=== PATIENT | female | born 1960 | race Caucasian/White ===

== ENCOUNTER 2017-01-10 14:45 | Emergency (ER) | payer MEDICAID ==
[2017-01-10 15:10] VITALS: TEMP 98.2
--- NOTE | 2017-01-10 15:30 | EDPHY ---
H & P Time Seen by Provider: 01/10/17 15:26 HPI/ROS: Chief complaint.Painful breathing HPI. 56-year-old female with history of ankylosing spondylitis. She has had chest pain fairly constantly but somewhat off and on for the past 4 months. She had an echo this morning results unknown. She has had chest pain both in the left anterior chest and left posterior back as well as right posterior back. She describes as "on fire and inflamed". Not worse today but continues. Pain comes in waves in causes shortness of breath of symptoms worse with movement but not exertion breathing ; no fever, cough. no unusual leg pain or swelling. She is thirsty. ROS Constitutional. no fever/chills, no weakness Eyes. no problems with vision ENT. no sore throat, no nasal drainage Cardiovascular. Chest pain Respiratory. occasional shortness of breath Abdominal. no abdominal pain, no nausea/vomiting, no diarrhea . no problems urinating MS. no calf pain/swelling, no neck/back pain, no joint pain Skin. no rash Lymph. no swollen glands Neuro. no headache, no dizziness, no difficulty walking or with speech Past Medical/Surgical History: Past medical history significant for ankylosing spondylitis Social History: Single, nonsmoker, no alcohol Smoking Status: Never smoked Physical Exam: General Appearance: Alert well-developed female no distress vital signs are stable Eyes: Pupils equal and round no pallor or injection. ENT, Mouth: Mucous membranes are moist. Respiratory: There are no retractions, lungs are clear to auscultation. Cardiovascular: Regular rate and rhythm. Gastrointestinal: Abdomen is soft and nontender, no masses, bowel sounds normal. Neurological: Awake and alert, sensory and motor exams grossly normal. Skin: Warm and dry, no rashes. Musculoskeletal: Neck is supple nontender. Extremities symmetrical, full range of motion. Psychiatric: Patient is oriented X 3, there is no agitation. Constitutional: Initial Vital Signs Temperature (C) 36.8 C 01/10/17 15:07 Heart Rate 84 01/10/17 15:07 Respiratory Rate 18 01/10/17 15:07 Blood Pressure 123/76 H 01/10/17 15:07 O2 Sat (%) 98 01/10/17 15:07 O2 Delivery Mode Room Air Allergies/Adverse Reactions: codeine [Codeine] Allergy (Severe, Verified 10/29/12 14:36) FEELS FUNNY Home Medications: Medication Instructions Recorded Imitrex Unk Dose 08/28/12 Hydrocodone/APAP 5/325 [[place] 1 each PO Q4-6PRN PRN #14 tab 01/10/17 5/325 (*)] Naproxen 01/10/17 Medical Decision Making - Diagnostics EKG Interpretation: EKG interpreted by me shows normal sinus rhythm with normal interval and axis. QRS is normal there is no significant ST elevation or depression. No arrhythmia. The rate is 65 Imaging: Chest x-ray interpreted by me is normal Procedures: IV normal saline, monitor ED Course/Re-evaluation: Re-evaluation 6:00 p.m. and patient is stable. Patient and I discussed imaging EKG lab studies. We discussed treatment plan including criteria for return and importance of follow-up and further evaluation especially with her access clinician. She expresses understanding and agreement Differential Diagnosis: Pain exacerbation of unclear etiology. The patient has ankylosing spondylitis. She has had chest pain and back pain for quite some time. Workup today he is normal. I do not think that the patient has acute coronary syndrome, pulmonary embolus, pneumonia. Plan will be short-term narcotics and continuing the Naprosyn with close follow-up - Data Points Laboratory Results: Laboratory Results 01/10/17 16:35 01/10/17 16:35 01/10/17 01/10/17 01/10/17 16:35 16:35 16:35 WBC 5.43 10^3/uL 10^3/uL (3.80-9.50) RBC 4.20 10^6/uL 10^6/uL (4.18-5.33) Hgb 12.8 g/dL g/dL (12.6-16.3) Hct 38.7 % % (38.0-47.0) MCV 92.1 fL fL (81.5-99.8) MCH 30.5 pg pg (27.9-34.1) MCHC 33.1 g/dL g/dL (32.4-36.7) RDW 12.5 % % (11.5-15.2) Plt Count 223 10^3/uL 10^3/uL (150-400) MPV 9.1 fL fL (8.7-11.7) Neut % (Auto) 62.2 % % (39.3-74.2) Lymph % (Auto) 28.0 % % (15.0-45.0) [place] % (Auto) 7.7 % % (4.5-13.0) Eos % (Auto) 1.5 % % (0.6-7.6) Baso % (Auto) 0.4 % % (0.3-1.7) Nucleat RBC Rel Count 0.0 % % (0.0-0.2) Absolute Neuts (auto) 3.38 10^3/uL 10^3/uL (1.70-6.50) Absolute Lymphs (auto) 1.52 10^3/uL 10^3/uL (1.00-3.00) Absolute Monos (auto) 0.42 10^3/uL 10^3/uL (0.30-0.80) Absolute Eos (auto) 0.08 10^3/uL 10^3/uL (0.03-0.40) Absolute Basos (auto) 0.02 10^3/uL 10^3/uL (0.02-0.10) Absolute Nucleated RBC 0.00 10^3/uL 10^3/uL (0-0.01) Immature Gran % 0.2 % % (0.0-1.1) Immature Gran # 0.01 10^3/uL 10^3/uL (0.00-0.10) ESR 18 MM/HR MM/HR (0-30) D-Dimer 0.42 ug/mLFEU ug/mLFEU (0.00-0.50) Sodium 142 mEq/L mEq/L (134-144) Potassium 4.3 mEq/L mEq/L (3.5-5.2) Chloride 104 mEq/L mEq/L (97-110) Carbon Dioxide 29 mEq/l mEq/l (22-31) Anion Gap 9 mEq/L mEq/L (8-16) BUN 7 mg/dL mg/dL (7-23) Creatinine 0.5 mg/dL L mg/dL (0.6-1.0) Estimated GFR > 60 Glucose 94 mg/dL mg/dL (70-100) Calcium 9.6 mg/dL mg/dL (8.5-10.4) Troponin I < 0.012 ng/mL ng/mL (0-0.034) C-Reactive Protein 30.8 mg/L H mg/L (<10.0) Departure - Departure Disposition: Home, Routine, Self-Care Clinical Impression: Chest pain Qualifiers: Chest pain type: other chest pain Qualified Code(s): R07.89 - Other chest pain ; R07.8 - Other chest pain Condition: Good Instructions: Chest Pain (ED) Additional Instructions: Continue the Naprosyn as prescribed. Hydrocodone in addition for discomfort. Return for worsening symptoms. Follow up with Dr. robert and Dr. Ragsdale in the next 2-3 days for re-evaluation Referrals: YINA ALVAREZ [Primary Care Provider] - As per Instructions Bin Ragsdale MD [Medical Doctor] - 2-3 days without fail Prescriptions: Hydrocodone/APAP 5/325 [[place] 5/325 (*)] 1 each PO Q4-6PRN PRN #14 tab PRN Reason: Pain, Moderate
[2017-01-10 16:51] LABS: % IMMATURE GRANULYOCYTES 0.2 % (0.0-1.1); ABSOLUTE IMMATURE GRANULOCYTES 0.01 10^3/uL (0.00-0.10); ADD DIFF? NO; ADD MORPH? NO; ADD SCAN? NO; ATYPICAL LYMPHOCYTE FLAG 20 (0-99); FRAGMENT RBC FLAG 0 (0-99); HEMATOCRIT 38.7 % (38.0-47.0); HEMOGLOBIN 12.8 g/dL (12.6-16.3); LEFT SHIFT FLG 0 (0-99); LIPEMIA HEMOLYSIS FLAG 80 (0-99); MEAN CELL HEMOGLOBIN 30.5 pg (27.9-34.1); MEAN CELL HEMOGLOBIN CONCENTR. 33.1 g/dL (32.4-36.7); MEAN CELL VOLUME 92.1 fL (81.5-99.8); MEAN PLATELET VOLUME 9.1 fL (8.7-11.7); PLATELET CLUMPS FLAG 10 (0-99); PLATELET COUNT 223 10^3/uL (150-400); RED CELL DISTRIBUTION WIDTH 12.5 % (11.5-15.2)
[2017-01-10 17:09] LABS: ANION GAP 9 mEq/L (8-16); C-REACTIVE PROTEIN 30.8 mg/L (<10.0); CALCIUM 9.6 mg/dL (8.5-10.4); CARBON DIOXIDE 29 mEq/l (22-31); CHLORIDE 104 mEq/L (97-110); CREATININE 0.5 mg/dL (0.6-1.0); GLOMERULAR FILTRATION RATE > 60; GLUCOSE 94 mg/dL (70-100); POTASSIUM 4.3 mEq/L (3.5-5.2); SODIUM 142 mEq/L (134-144)
[2017-01-10 17:14] LABS: SEDIMENTATION RATE 18 MM/HR (0-30)
[2017-01-10 17:17] LABS: TROPONIN I < 0.012 ng/mL (0-0.034)
--- NOTE | 2017-01-10 17:25 | CPEKG ---
Heart Rate: 65 RR Interval: 923 P-R Interval: 156 QRSD Interval: 70 QT Interval: 376 QTC Interval: 391 P [place]: 69 QRS [place]: 75 T Wave [place]: 36 EKG Severity - NORMAL ECG - EKG Impression: SINUS RHYTHM Electronically Signed By: Stephane Martel 11-Jan-2017 00:02:26
[2017-01-10 18:29] VITALS: BP 113/90; PULSE 76; RESP 16; O2SAT 95
== END 2017-01-10 18:30 | disposition home or self-care (01) ==
DX: R07.89 Other chest pain (principal)

== ENCOUNTER → 2017-08-15 | Outpatient (CLI) | payer MEDICAID | LOC: FIMAGING 11:22 | PROVIDERS: ATTEND Obstetrics & Gynecology | DX: D25.1 Intramural leiomyoma of uterus (principal); I87.2 Venous insufficiency (chronic) (peripheral); Z78.0 Asymptomatic menopausal state ==